=== PATIENT | female | born 1955 | race Caucasian/White ===

== ENCOUNTER → 2019-11-13 11:23 | Outpatient (CLI) | payer MEDICARE, BC, SELFPAY ==
[2017-08-12 09:22] VITALS: BMI 34.8
[2019-11-13 15:28] LABS: Absolute Lymphocyte Count 1.97 X10^3/uL (0.83-4.51); Absolute Neutrophil Count 7.3 X10^3/uL (2.0-7.7); Basophil# 0.05 X10^3/uL; Basophil% 0.5 % (0-1); Eosinophil# 0.11 X10^3/uL; Eosinophils% 1.1 % (0-5); Hematocrit 40.9 % (37-47); Hemoglobin 13.6 g/dL (12.0-15.0); Lymphocyte # 1.97 X10^3/ul (4.0); Lymphocyte % 19.2 % (19-41); Mean Corp Hgb Conc 33.3 g/dL (32-36); Mean Corpuscular Hgb 33.1 pg (27.0-32.0); Mean Corpuscular Volume 99.5 fL (81-99); Mean Platelet Vol. 10.8 fl (6.2-12.0); Monocyte% 7.8 % (0-10); NRBC Flagged by Analyzer 0 % (0-5); Neutrophil # 7.31 X10^3/uL (2.7-7.7); Platelet Count 263 K/mm3 (150-450); RBC Distribution Width CV 12.1 % (11.6-14.6); RBC Distribution Width SD 44.3 fl (35.1-43.9); Red Blood Count 4.11 M/mm3 (4.2-5.4); White Blood Count 10.3 K/mm3 (4.4-11.0)
[2019-11-13 15:51] LABS: AST(SGOT) 19 U/L (15-37); Alanine Aminotransfer ALT/SGPT 27 U/L (13-56); Albumin, Serum 3.7 g/dL (3.2-5.0); Alkaline Phosphatase 69 U/L (45-117); Anion Gap 7 (5-15); BUN 16 mg/dL (7-18); BUN/Creat Ratio 24.7 RATIO (10-20); Chloride 106 mmol/L (98-107); Creatinine, Serum 0.65 mg/dL (0.55-1.02); EST Glomerular Filtration Rate 97 mL/min (>60); Est Glom Filt Rate - Afr Amer 118 mL/min (>60); Globulin 3.6 g/dL (2.2-4.2); Glucose 93 mg/dL (74-106); Protein, Total 7.3 g/dL (6.4-8.2); Sodium Level 139 mmol/L (136-145); T4 Free Direct 0.83 ng/dL (0.76-1.46)
== END ==
PROVIDERS: PCP Family Medicine; Visit Provider Family Medicine
DX: G47.00 Insomnia, unspecified (principal); R73.01 Impaired fasting glucose; Z51.81 Encounter for therapeutic drug level monitoring
CPT/HCPCS: 36415; 80053; 84439; 84443; 85025

== ENCOUNTER → 2020-07-05 16:51 | Outpatient (CLI) | payer MEDICARE, BC, SELFPAY ==
--- NOTE | 2020-07-05 11:45 | CER_PTH ---
PATIENT: BRIAN RUDD LOC: [facility] U#:[id number] AGE/SX: 69/F ROOM: RE07/05/[address]: Dr. Maricarmen Low MD : [id number] BED: DIS: SPEC #: [id number] RECD: 07/08/20 07:16 STATUS: DAVID SHERINE #: [id number] DRE: 07/05/20 11:[address]: Maricarmen Low DEPT: SURGICAL PATHOLOGY RECD BY: Rita Lao ENTERED: 07/08/20 07:17 SP TYPE: CERV OTHR DR: Dr. Valeriy Santana MD Tissues: Uterine cervix, NOS Procedures: Surgery Specimen Level IV HEADER OPERATION: Cervical polypectomy PRE-OP DIAGNOSIS: Cervical polyp TISSUE SUBMITTED: Cervical polyp MICROSCOPIC DIAGNOSIS Cervical polyp, biopsy: Benign cervical polyp, mildly inflamed. AM:savanah 07/09/20 MICROSCOPIC DESCRIPTION Slides are reviewed. GROSS DESCRIPTION Received is one container labeled with the patient's name and not further designated. The specimen consists of an elongated fragment of [place] soft tissue measuring 2.5 x 0.5 x 0.2 cm. The specimen is totally submitted in one cassette. / AM:savanah 07/08/20 TC:1 CPT: 16838
[2020-07-05 11:54] VITALS: BMI 34.8
== END ==
PROVIDERS: PCP Family Medicine; Referring Provider Obstetrics & Gynecology; Visit Provider Obstetrics & Gynecology
DX: N84.1 Polyp of cervix uteri (principal)
CPT/HCPCS: 88305

== ENCOUNTER → 2020-07-05 16:54 | Outpatient (CLI) | payer MEDICARE, BC, SELFPAY ==
[2020-07-05 11:54] VITALS: BMI 34.8
[2020-07-11 13:37] LABS: HPV APTIMA, High Risk Negative (Negative)
== END ==
PROVIDERS: PCP Family Medicine; Referring Provider Obstetrics & Gynecology; Visit Provider Obstetrics & Gynecology
DX: Z12.4 Encounter for screening for malignant neoplasm of cervix (principal); N84.1 Polyp of cervix uteri
CPT/HCPCS: 87624; 88175; 88305; G0145

== ENCOUNTER → 2020-07-16 07:46 | Outpatient (CLI) | payer MEDICARE, BC, SELFPAY ==
[2020-07-05 11:54] VITALS: BMI 34.8
--- NOTE | 2020-07-16 07:47 | CT_ITS ---
STUDY: CT ABDOMEN AND PELVIS WITH CONTRAST REASON FOR EXAM: Female, 64 years old. BLOATING X 2 MONTHS, 12LB WT LOSS X FEW MONTHS, UNINTENTIONAL WT LOSS RADIATION DOSAGE (If Supplied By Facility): CTDIvol = ( 17.84 ) mGy, DLP = ( 2648.35 ) mGycm TECHNIQUE: Transaxial images were obtained from the dome of the diaphragm to the symphysis pubis with oral contrast. Oral and amp; IV Readi-CAT and amp; 100mL Isovue-300 was administered. Sagittal and coronal images were reconstructed. Individualized dose optimization techniques were used for this CT. COMPARISON: Comparison is made with prior study dated 08/12/2017. FINDINGS: There is an 18.3 cm x 20.75 x 22.1 cm large septated mass arising from the pelvis extending in to the lower abdomen. Small amount of ascites. The visualized lung bases are unremarkable. The visualized portions of the heart are within normal limits. There is decreased attenuation of the liver consistent with steatosis. There are multiple gallstones. Normal spleen. Normal pancreas. Normal bilateral adrenal glands. Normal right kidney. Multiple left renal cysts. Normal visualized stomach. Normal small intestine. Normal colon. The appendix is visualized and appears normal. There is diffuse atherosclerotic calcification of the abdominal aorta, without a demonstrated aneurysm. Normal inferior vena cava. Soft tissue mass seen in the mesenteric fat in the right upper quadrant superior and anterior to the liver. This abuts the right hepatic flexure. Omental metastasis. Normal urinary bladder. Normal abdominal wall. There are diffuse degenerative changes of the visualized lumbar spine. Levoscoliosis. 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 Fatty infiltration of the liver. Multiple small gallstones. Multiple left renal cysts. Electronically Signed: Darryl Gaspar, at 12:31 EDT , Service support ,
[2020-07-16 08:01] LABS: CREATININE FINGERSTICK < 0.6 mg/dL (0.55-1.02)
--- NOTE | 2020-07-16 08:17 | CT_ITS ---
STUDY: CT CHEST WITH CONTRAST REASON FOR EXAM: Female, 64 years old. BLOATING X 2 MONTHS, 12LB WT LOSS X FEW MONTHS, UNINTENTIONAL WT LOSS RADIATION DOSAGE (If Supplied By Facility): CTDIvol = ( 17.84 ) mGy, DLP = ( 2648.35 ) mGycm TECHNIQUE: Transaxial imaging was performed following intravenous administration of Oral and amp; IV Readi-CAT and amp; 100mL Isovue-300. Individualized dose optimization techniques were used for this CT. COMPARISON: CT abdomen and pelvis 08/12/2017. FINDINGS: There is a large right anterior diaphragmatic hernia (MORGAGNI hernia), this has markedly increased in size since 08/12/2017. This contains herniated mesentery which demonstrates extensive mesenteric edema and metastatic deposits, a moderate amount of abdominal ascites, a loop of proximal transverse colon without evidence of obstruction on CT abdomen and pelvis performed the same day. There is right middle lobe atelectasis and essentially complete collapse. There is a 2 mm posterior right lower lobe nodule on series 4 image 108. Left lower lobe calcified granuloma. There is no demonstrated pleural abnormality. Normal heart and pericardium. There is extensive coronary artery calcifications and/or stents. Portion of the left chest wall is excluded from view. There is mild left-sided shift of the mediastinum. Normal hilar regions. Normal enhanced pulmonary arteries. Mild aortic atherosclerotic disease. Normal osseous structures. There is hepatic steatosis noted. Moderate amount of abdominal ascites is seen in the superior abdomen. CT/Chest WITH Contrast IMPRESSION: 1. 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 This exerts mild left-sided midline shift. 2. Right middle lobe is completely collapsed/compressed by the large hernia. 3. 2 mm posterior right lower lobe nodule. Electronically Signed: Alysha Coto, at 15:02 EDT Tel , Service support ,
[2020-07-16 15:18] LABS: Absolute Neutrophil Count 12.1 X10^3/uL (2.0-7.7); Basophil# 0.04 X10^3/uL; Basophil% 0.3 % (0-1); Eosinophil# 0.02 X10^3/uL; Eosinophils% 0.1 % (0-5); Hematocrit 33.8 % (37-47); Hemoglobin 10.5 g/dL (12.0-15.0); Lymphocyte % 8.9 % (19-41); Mean Corp Hgb Conc 31.1 g/dL (32-36); Mean Corpuscular Hgb 29.8 pg (27.0-32.0); Mean Platelet Vol. 9.7 fl (6.2-12.0); Monocyte# 1.11 X10^3/uL; Monocyte% 7.6 % (0-10); NRBC Flagged by Analyzer 0 % (0-5); Neutrophil # 12.08 X10^3/uL (2.7-7.7); Neutrophil % 82.7 % (47-70); Platelet Count 533 K/mm3 (150-450); RBC Distribution Width CV 13.5 % (11.6-14.6); RBC Distribution Width SD 47.8 fl (35.1-43.9); Red Blood Count 3.52 M/mm3 (4.2-5.4); White Blood Count 14.6 K/mm3 (4.4-11.0)
[2020-07-16 15:42] LABS: ALB/GLOB Ratio 0.6 RATIO (0.9-2.4); AST(SGOT) 35 U/L (15-37); Alanine Aminotransfer ALT/SGPT 19 U/L (13-56); Albumin, Serum 2.6 g/dL (3.2-5.0); Alkaline Phosphatase 108 U/L (45-117); Anion Gap 8 (5-15); BUN 10 mg/dL (7-18); BUN/Creat Ratio 18.7 RATIO (10-20); Calcium,Total 8.6 mg/dL (8.5-10.1); Chloride 104 mmol/L (98-107); Creatinine, Serum 0.53 mg/dL (0.55-1.02); EST Glomerular Filtration Rate 121 mL/min (>60); Est Glom Filt Rate - Afr Amer 147 mL/min (>60); Globulin 4.5 g/dL (2.2-4.2); Glucose 107 mg/dL (74-106); Potassium 3.2 mmol/L (3.5-5.1); Protein, Total 7.1 g/dL (6.4-8.2); Sodium Level 139 mmol/L (136-145)
[2020-07-18 15:01] LABS: Carbohydrate Ag 19-9 2261 230 U/mL (0-35); Carcinoembryonic Antigen 2.9 ng/mL (0.0-4.7)
== END ==
PROVIDERS: PCP Family Medicine; Referring Provider Obstetrics & Gynecology; Visit Provider Obstetrics & Gynecology
DX: R14.0 Abdominal distension (gaseous) (principal); R63.4 Abnormal weight loss; D49.59 Neoplasm of unspecified behavior of other genitourinary organ
CPT/HCPCS: 36415; 71260; 74177; 80053; 82378; 85025; 86301; 86304; Q9967

== ENCOUNTER → 2020-08-20 14:47 | Outpatient (CLI) | payer MEDICARE, BC, SELFPAY ==
[2020-08-20 13:13] VITALS: BMI 33.5
--- NOTE | 2020-08-20 15:03 | VDLE_ITS ---
Reason For Study: Swelling RIGHT LEFT GSV is normal. GSV is normal. CFV is compressible, spontaneous, phasic, CFV is compressible, spontaneous, phasic, competent and demonstrates normal competent, and demonstrates normal augmentation. augmentation. FV is compressible, spontaneous, phasic, FV is compressible, spontaneous, phasic, competent and demonstrates normal competent and demonstrates normal augmentation. augmentation. POP V is compressible, spontaneous, phasic, POP V is compressible, spontaneous, phasic, competent and demonstrates normal competent and demonstrates normal augmentation. augmentation. T/P Trunk is compressible. T/P Trunk is compressible. PTV is compressible. PTV is compressible. RT PerV is compressible. LT PerV is compressible. Procedure This is a venous duplex using B-mode, color flow and spectral Doppler. Exam performed in department. Calf veins only visualized at ankle due to edema. A preliminary report was called and/or faxed to RN @ [facility] office. Interpretation Summary No evidence for acute deep venous thrombosis bilateral lower extremities with patent and compressible bilateral great saphenous veins. Technically limited exam as noted secondary to calf swelling Ordering Physician: Cecy James Referring Physician: Valeriy Santana Performed By: Hannah Smith RVT
== END ==
LOC: CT 14:50 → CVS 14:50
PROVIDERS: PCP Family Medicine; Referring Provider Internal Medicine Hematology & Oncology; Visit Provider Internal Medicine Hematology & Oncology
DX: C56.9 Malignant neoplasm of unspecified ovary (principal); C78.6 Secondary malignant neoplasm of retroperitoneum and peritoneum; C80.1 Malignant (primary) neoplasm, unspecified; R91.1 Solitary pulmonary nodule; R60.0 Localized edema; Z45.2 Encounter for adjustment and management of vascular access device
CPT/HCPCS: 36415; 80053; 82607; 82728; 83540; 83550; 85025; 86304; 93970

== ENCOUNTER → 2020-09-02 14:24 | Outpatient (CLI) | payer MEDICARE, BC, SELFPAY ==
[2020-08-20 13:13] VITALS: BMI 33.5
[2020-08-26 16:49] VITALS: BMI 34.6
--- NOTE | 2020-09-02 14:26 | CT_ITS ---
STUDY: CT CHEST WITH CONTRAST REASON FOR EXAM: Female, 64 years old. FOLLOW UP ON OVARIAN CA. HAD HYSTERECTOMY X 5 WEEKS AGO. RADIATION DOSAGE (If Supplied By Facility): CTDIvol = ( 12.53 ) mGy, DLP = ( 1397.72 ) mGycm TECHNIQUE: Transaxial imaging was performed following intravenous administration of 100ML OF ISOVUE 300. Multiplanar coronal and sagittal images were reformatted. Individualized dose optimization techniques were used for this CT. COMPARISON: Comparison is made with prior study dated 07/16/2020. FINDINGS: Minimal degree of increased markings at the right lung base suggestive of right basilar atelectasis. The previously seen soft tissue mass overlying the right lobe of the liver and diaphragmatic elevation has improved. There is no demonstrated pleural abnormality. There are calcifications of the coronary arteries. Normal mediastinum. Normal hilar regions. Normal enhanced pulmonary arteries. Normal aorta arch and descending thoracic aorta. There are degenerative changes of the thoracic spine. Demineralization of the thoracic vertebrae with approximately 50% loss of height of a lower dorsal vertebrae. Diffuse fatty infiltration of the liver. Ascites. CT/Chest WITH Contrast IMPRESSION: Findings suggest some mild atelectasis in the right middle lobe. The previously seen elevation of the right hemidiaphragm has improved. Electronically Signed: Darryl Gaspar, at 15:55 EST , Service support ,
--- NOTE | 2020-09-02 14:40 | CT_ITS ---
STUDY: CT ABDOMEN AND PELVIS WITH CONTRAST REASON FOR EXAM: Female, 64 years old. FOLLOW UP ON OVARIAN CA. HAD HYSTERECTOMY X 5 WEEKS AGO. RADIATION DOSAGE (If Supplied By Facility): CTDIvol = ( 12.5 ) mGy, DLP = ( 1397.72 ) mGycm TECHNIQUE: Transaxial images were obtained from the dome of the diaphragm to the symphysis pubis without oral contrast. 100 ML OS ISOVUE 300 was administered. Sagittal and coronal images were reconstructed. Individualized dose optimization techniques were used for this CT. COMPARISON: Comparison is made with prior study dated 07/16/2020. FINDINGS: Minimal atelectasis at the right lung base. Coronary artery calcification. Diffuse ascites although this has improved as compared to prior examination. The previously seen mesenteric infiltration surrounding the superior aspect of the liver has improved. There is decreased attenuation of the liver consistent with steatosis. Mild hepatomegaly. There are multiple gallstones. Normal spleen. Normal pancreas. Normal bilateral adrenal glands. Normal right kidney. Stable multiple left hepatic cysts. Normal visualized stomach. Normal small intestine. Normal colon. The appendix is visualized and appears normal. Normal abdominal aorta. Normal inferior vena cava. Normal retroperitoneum. Normal urinary bladder. There is absence of the uterus consistent with a prior hysterectomy. The previously seen large abdominal pelvic complex cystic mass has been surgically resected. Normal abdominal wall. There are diffuse degenerative changes of the visualized lumbar spine. CT/Abdomen/Pelvis W IV Cont ONLY IMPRESSION: Since prior study, the patient has undergone surgical resection of the large abdominal pelvic mass. The previously seen ascites has improved although residual ascites persists. Multiple small gallstones. Mild hepatomegaly and diffuse fatty infiltration of the liver. Electronically Signed: Darryl Gaspar, at 15:47 EST , Service support ,
== END ==
PROVIDERS: PCP Family Medicine; Referring Provider Internal Medicine Hematology & Oncology; Visit Provider Internal Medicine Hematology & Oncology
DX: C56.9 Malignant neoplasm of unspecified ovary (principal); C78.6 Secondary malignant neoplasm of retroperitoneum and peritoneum; C80.1 Malignant (primary) neoplasm, unspecified; R91.1 Solitary pulmonary nodule; C56.2 Malignant neoplasm of left ovary
CPT/HCPCS: 71260; 74177; Q9967

== ENCOUNTER 2020-09-04 08:56 | Day surgery (SDC) | payer MEDICARE, BC, SELFPAY ==
[2020-08-22 13:58] VITALS: BMI 32.9
[2020-08-26 16:49] VITALS: BMI 34.6
[2020-09-03 12:47] LABS: Potassium 3.4 mmol/L (3.5-5.1)
[2020-09-03 16:56] LABS: Probe Check PASS; Specimen Processing Control PASS
[2020-09-04 09:49] VITALS: BP 141/73; PULSE 96; RESP 18; TEMP 36.6; O2SAT 98; BMI 34.2
--- NOTE | 2020-09-04 10:00 | HP_ITS ---
Intake Visit Reasons: Port Placement Consult Chief Complaint: Ovarian cancer [employer] Adviser Required: No Is patient in pain?: No Allergies fentanyl Adverse Reaction (Severe, Verified 08/22/20 13:58) Nausea pregabalin [From Lyrica] Adverse Reaction (Severe, Verified 08/22/20 13:58) Other Medications Oxycodone CR [Oxycontin] 20 mg PO Q12H 08/12/17 [History Confirmed 08/22/20] Oxycodone HCl/Acetaminophen [Percocet 5/325] 2 tab PO Q12H PRN PRN 08/12/17 [History Confirmed 08/22/20] Triazolam 0.25 mg PO QHS 08/12/17 [History Confirmed 08/22/20] ondansetron HCl 4 mg tablet 4 mg PO Q8H PRN #60 tab 07/18/20 [Rx Confirmed 08/22/20] Enoxaparin Sodium 100 mg SQ DAILY 08/20/20 [History Confirmed 08/22/20] PFSH Medical History Iron deficiency anemia (Chronic) Chronic back pain (Chronic) Nodule of lower lobe of right lung (Acute) Omental metastasis (Acute) Peritoneal carcinomatosis (Acute) Ovarian cancer (Acute) Lichen sclerosus (Chronic) Weight loss (Acute) Uterine prolapse (Acute) Surgical History Status post exploratory laparotomy (Acute) Status post eye surgery (Acute) Family History Mother Blood disease Father Myocardial infarction Social History (Updated 08/23/20 @ 11:[address] Jesus Manuel May MD) household members: spouse, other number of children: 3 current occupational status: retired history of recent travel: No Smoking Status: Never smoker alcohol intake: never substance use type: does not use what type of physical activity do you participate in: none seatbelt use: always do you feel safe at home: Yes additional social history: - James HPI HPI Chief Complaint: Ovarian cancer Details: Patient was informed that this visit will be billed to patient. This visit was conducted during pandemic. BRIAN RUDD, is a 64 F who Had a phone visit for port placement as well as EGD and colonoscopy. 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 The patient was recommended to have EGD and colonoscopy to ensure that the primary was a variant and not GI in nature. Patient also needs port placement for chemotherapy. ROS Const Constitutional: No anorexia, chills or abnormal sleep pattern Cardio Cardiology: No chest pain at rest or chest pain with exertion Gastro GI: No abdominal pain, change in bowel habits, Vomiting blood/hematemesis or blood in stool Genitourinary-Female: No difficulty urinating Neuro Neurology: No abnormal speech Psych Psychiatric: No abnormal sleep pattern Exam Const General: cooperative, comfortable Resp Effort & Inspection: normal respiratory effort GI Inspection: normal to inspection, non-distended Auscultation: normal bowel sounds Palpation: nontender Details: Details:: Exam was limited due to phone visit with no video. Quality Reporting Medication Reconciliation (CMS 68) enoxaparin 100 mg SQ DAILY ondansetron HCl (Zofran) 4 mg PO Q8H PRN oxycodone ER 20 mg PO Q12H oxycodone-acetaminophen 5-325 mg 2 tabs PO Q12H PRN PRN triazolam 0.25 mg PO QHS Tobacco Screening (CMS 138) Smoking Status: Never smoker Assessment & Plan Problems 1. Peritoneal carcinomatosis C78.6; C80.1 2. Ovarian cancer C56.9 Plan The patient has mucinous carcinoma of the abdomen and she was recommended by tumor board to have an EGD and colonoscopy to ensure there is not a primary in the GI tract. I will perform an EGD and colonoscopy. I explained endoscopy in detail to the patient. I explained the risks including but not limited to stroke or heart attack with anesthesia, perforation of the GI tract, bleeding, infection. I explained that any of these could necessitate further emergency surgery. The patient understands and all questions were answered sufficiently. The patient wishes to proceed with procedure. Patient also requires port placement for chemotherapy. I discussed port placement including the risks of bleeding, infection, pneumothorax, line infection or DVT. The patient understands the risks and will proceed with port placement. We discussed the current risks associated with COVID-19. While it is understood that there is a community spread of COVID-19, the risk of sandip COVID-19 while at [facility] ([facility]) is very low; however, the risk cannot be completely mitigated because of the community spread of the disease. We discussed in detail the risk of exposure to and/or potential harm posed by the COVID-19 virus with having a surgery/procedure at this time versus the risk of delaying the surgery/procedure. It is not possible to know either the risk of delaying the surgery or procedure or chance of getting an infection with perfect accuracy, but a joint decision was made to proceed at this time with the scheduled surgery/procedure as indicated on the consent form. Patient was notified that we will need to comply with any screening or testing [facility] wishes to perform or that surgery may be delayed for any positive results. Phone visit [phone] Jesus Manuel May MD Pager: [facility] [address] [place] [address], [address] [place] [address] Office: Orders Orders: Colonoscopy 08/22/20 C78.6, C80.1 EGD 08/22/20 C78.6, C80.1 Coding Level of Care Code Level 3 Telephone Diagnoses Peritoneal carcinomatosis C78.6; C80.1 Ovarian cancer C56.9 I have re-examined the patient. There are no clinical changes since date of exam.
[2020-09-04] MEDS: Lactated Ringers 1,000 ML 75 ML IV (10:19)
[2020-09-04] MEDS: Cefazolin 2 GM in 0.9% Normal Saline 100 ML IV (10:56)
[2020-09-04] MEDS: Bupiv/Epi 0.5% Mpf 30 ML Vial (11:00)
[2020-09-04 11:21] VITALS: BP 132/68; BP 141/73; PULSE 100; RESP 18; TEMP 36.3; O2SAT 100
[2020-09-04 11:25] VITALS: BP 126/65; BP 141/73; PULSE 99; RESP 18; O2SAT 99
--- NOTE | 2020-09-04 11:25 | RAD_ITS ---
STUDY: X-RAY CHEST REASON FOR EXAM: Female, 64 years old. Post op port placement TECHNIQUE: Single AP portable view of the chest. COMPARISON: None. FINDINGS: A right-sided portacatheter has been placed with the tip at the junction of the superior vena cava and right atrium. Elevation of the right hemidiaphragm. No acute abnormality is seen. There is no demonstrated pleural abnormality. Normal size heart. Normal mediastinum and brad. Normal visualized pulmonary arteries. Normal visualized aortic arch and descending thoracic aorta. There are diffuse degenerative changes of the visualized thoracic spine. Normal visualized ribs, clavicles, and shoulders. There is no demonstrated abnormality of the visualized soft tissue structures of the upper abdomen. RAD/CXR for Line Placement IMPRESSION: Status post right portacatheter placement with the tip at the junction of the superior vena cava and right atrium. Electronically Signed: Darryl Gaspar, at 11:49 EST , Service support ,
[2020-09-04 11:29] VITALS: BP 122/67; BP 141/73; PULSE 95; RESP 18; O2SAT 98
--- NOTE | 2020-09-04 11:34 | PCM.OPRPT ---
Problem List (1) Encounter for adjustment and management of vascular access device Status: Acute (2) Ovarian cancer Status: Acute Qualifiers: Report of Operation Date of Procedure: 09/04/20 Pre-Operative Diagnosis: Ovarian cancer and need for vascular access for chemotherapy Post-Operative Diagnosis: Same Surgery/Procedure Performed:: Ultrasound and fluoroscopy guided right chest port placement utilizing right IJ Description of Procedure: After obtaining informed consent patient was brought back to the operating room MAC anesthesia was induced and the Right chest and neck were prepped in normal sterile fashion. Ultrasound was used to evaluate both IJs and the right IJ was selected. Next, using a needle, the Right IJ was accessed and a guidewire was passed on into the superior vena cava under fluoroscopy guidance. A small incision was made over the puncture site and the dilator introducer was placed over the guidewire. Next this was capped and the pocket was made for the port. 1% lidocaine with epinephrine was injected in the proposed port site. An incision was made with scalpel. Electrocautery was used to make a pocket under the skin and subcutaneous tissue. Hemostasis was obtained. Next, the catheter was tunneled up to the neck incision site and placed through the introducer. The peel-away introducer was removed and the position of the catheter was confirmed on fluoroscopy. Next, the catheter was trimmed and attached to the port with the locking device. Interrupted 2-0 Vicryl sutures were used to anchor the port to the chest wall and then the port was placed inside the pocket. The pocket was then flushed with saline and the port irrigated with saline. There was good blood return and the port flushed easily. Next, heparin was injected into the port. The skin was closed with subcutaneous interrupted 3-0 Vicryl sutures. A single 3-0 Vicryl sutures placed under the skin at the neck incision site. Steri-Strips were placed as well as op sites. Patient tolerated procedure well, was taken to PACU in stable condition. Chest x-ray will be obtained. Grafts/Implants Used: 8 [place] [employer] - Admit VTE Documentation VTE Mechan Device Prophylaxis: SCD's
[2020-09-04 11:35] VITALS: BP 115/65; BP 126/55; BP 141/73; PULSE 96; PULSE 98; RESP 18; TEMP 36.3; O2SAT 100; O2SAT 97
--- NOTE | 2020-09-04 11:36 | PCM.DC.POR ---
Discharge Diet: No Restrictions - Pain medication may cause nausea. You should typically eat light foods as you take your pain medication. Discharge Activity: Return to Normal Activity, May Shower - with your bandage in place in 1-2 days after surgery. DO NOT SHOWER WHEN YOUR PORT IS ACCESSED. Call your doctor if your incision/area has: Continuous Slow Oozing, Sudden Increased Bleeding, Increased Pain/ Swelling, Increased Redness Call your doctor if you observe: Fever of 101 or Higher Remove Dressing in (days):: 3 - When you remove the bandage, leave the steri-strips intact until they fall off. Allergies/Adverse Reactions: Allergies fentanyl Adverse Reaction (Severe, Verified 09/02/20 09:52) Nausea pregabalin [From Lyrica] Adverse Reaction (Severe, Verified 09/02/20 09:52) Other MENTAL STATUS CHANGE Medications to take at Discharge Oxycodone CR [Oxycontin] 20 mg PO Q12H 08/12/17 Oxycodone HCl/Acetaminophen [Percocet 5/325] 2 tab PO Q12H PRN PRN 08/12/17 Triazolam 0.25 mg PO QHS 08/12/17 ondansetron HCl 4 mg tablet 4 mg PO Q8H PRN #60 tab 07/18/20 Enoxaparin Sodium 100 mg SQ DAILY 08/20/20 Lidocaine/Prilocaine [Lidocaine-Prilocaine Cream] 1 applicatio TP DAILY PRN PRN 30 Days #1 tube 08/26/20 Prochlorperazine Maleate 10 mg PO Q6H PRN PRN 10 Days #30 tab 08/26/20 potassium chloride 20 mEq tablet,extended release 20 meq PO DAILY #6 tab 09/02/20 Orders to be completed after discharge: O.R. Fluoro for CVP/PICC/PORT [RAD] Time Frame: 09/04/20, Facility: [facility], Location: [facility] Test Results: Test results from this visit will be discussed in further detail at your follow-up appointment, if applicable. Please Follow Up With: Jesus Manuel May MD When: Follow up as needed. [phone]
[2020-09-04 12:33] VITALS: BP 130/61; BP 141/73; PULSE 100; RESP 16; TEMP 36.3; O2SAT 97
== END 2020-09-04 12:37 | disposition home or self-care (01) ==
LOC: SDC 08:57 → AC 08:57
PROVIDERS: PCP Family Medicine; Referring Provider Surgery; Visit Provider Surgery
PROC: (CPT 36561; principal; 2020-09-04 10:45)
DX: Z45.2 Encounter for adjustment and management of vascular access device (principal); C56.9 Malignant neoplasm of unspecified ovary; G89.29 Other chronic pain; C78.6 Secondary malignant neoplasm of retroperitoneum and peritoneum; Z79.899 Other long term (current) drug therapy
CPT/HCPCS: 00532; 36561; 36415; 71045; 77001; 84132; 87635; C9803; J7120; C1788; U0002

== ENCOUNTER 2020-10-11 06:39 | Day surgery (SDC) | payer MEDICARE, BC, SELFPAY ==
[2020-08-22 13:58] VITALS: BMI 32.9
--- NOTE | 2020-09-20 08:00 | HP_ITS ---
Intake Visit Reasons: Port Placement Consult Chief Complaint: Ovarian cancer Motion Picture Camera Operator Required: No Is patient in pain?: No Allergies fentanyl Adverse Reaction (Severe, Verified 08/22/20 13:58) Nausea pregabalin [From Lyrica] Adverse Reaction (Severe, Verified 08/22/20 13:58) Other Medications Oxycodone CR [Oxycontin] 20 mg PO Q12H 08/12/17 [History Confirmed 08/22/20] Oxycodone HCl/Acetaminophen [Percocet 5/325] 2 tab PO Q12H PRN PRN 08/12/17 [History Confirmed 08/22/20] Triazolam 0.25 mg PO QHS 08/12/17 [History Confirmed 08/22/20] ondansetron HCl 4 mg tablet 4 mg PO Q8H PRN #60 tab 07/18/20 [Rx Confirmed 08/22/20] Enoxaparin Sodium 100 mg SQ DAILY 08/20/20 [History Confirmed 08/22/20] PFSH Medical History Iron deficiency anemia (Chronic) Chronic back pain (Chronic) Nodule of lower lobe of right lung (Acute) Omental metastasis (Acute) Peritoneal carcinomatosis (Acute) Ovarian cancer (Acute) Lichen sclerosus (Chronic) Weight loss (Acute) Uterine prolapse (Acute) Surgical History Status post exploratory laparotomy (Acute) Status post eye surgery (Acute) Family History Mother Blood disease Father Myocardial infarction Social History (Updated 08/23/20 @ 11:[address] Jesus Manuel May MD) household members: spouse, other number of children: 3 current occupational status: retired history of recent travel: No Smoking Status: Never smoker alcohol intake: never substance use type: does not use what type of physical activity do you participate in: none seatbelt use: always do you feel safe at home: Yes additional social history: - James HPI HPI Chief Complaint: Ovarian cancer Details: Patient was informed that this visit will be billed to patient. This visit was conducted during pandemic. BRIAN RUDD, is a 64 F who Had a phone visit for port placement as well as EGD and colonoscopy. 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 The patient was recommended to have EGD and colonoscopy to ensure that the primary was a variant and not GI in nature. Patient also needs port placement for chemotherapy. ROS Const Constitutional: No anorexia, chills or abnormal sleep pattern Cardio Cardiology: No chest pain at rest or chest pain with exertion Gastro GI: No abdominal pain, change in bowel habits, Vomiting blood/hematemesis or blood in stool Genitourinary-Female: No difficulty urinating Neuro Neurology: No abnormal speech Psych Psychiatric: No abnormal sleep pattern Exam Const General: cooperative, comfortable Resp Effort & Inspection: normal respiratory effort GI Inspection: normal to inspection, non-distended Auscultation: normal bowel sounds Palpation: nontender Details: Details:: Exam was limited due to phone visit with no video. Quality Reporting Medication Reconciliation (CMS 68) enoxaparin 100 mg SQ DAILY ondansetron HCl (Zofran) 4 mg PO Q8H PRN oxycodone ER 20 mg PO Q12H oxycodone-acetaminophen 5-325 mg 2 tabs PO Q12H PRN PRN triazolam 0.25 mg PO QHS Tobacco Screening (CMS 138) Smoking Status: Never smoker Assessment & Plan Problems 1. Peritoneal carcinomatosis C78.6; C80.1 2. Ovarian cancer C56.9 Plan The patient has mucinous carcinoma of the abdomen and she was recommended by tumor board to have an EGD and colonoscopy to ensure there is not a primary in the GI tract. I will perform an EGD and colonoscopy. I explained endoscopy in detail to the patient. I explained the risks including but not limited to stroke or heart attack with anesthesia, perforation of the GI tract, bleeding, infection. I explained that any of these could necessitate further emergency surgery. The patient understands and all questions were answered sufficiently. The patient wishes to proceed with procedure. Patient also requires port placement for chemotherapy. I discussed port placement including the risks of bleeding, infection, pneumothorax, line infection or DVT. The patient understands the risks and will proceed with port placement. We discussed the current risks associated with COVID-19. While it is understood that there is a community spread of COVID-19, the risk of sandip COVID-19 while at [facility] ([facility]) is very low; however, the risk cannot be completely mitigated because of the community spread of the disease. We discussed in detail the risk of exposure to and/or potential harm posed by the COVID-19 virus with having a surgery/procedure at this time versus the risk of delaying the surgery/procedure. It is not possible to know either the risk of delaying the surgery or procedure or chance of getting an infection with perfect accuracy, but a joint decision was made to proceed at this time with the scheduled surgery/procedure as indicated on the consent form. Patient was notified that we will need to comply with any screening or testing [facility] wishes to perform or that surgery may be delayed for any positive results. Phone visit [phone] Jesus Manuel May MD Pager: [facility] [address] [place] [address], [address] [place] [address] Office: Orders Orders: Colonoscopy 08/22/20 C78.6, C80.1 EGD 08/22/20 C78.6, C80.1 Coding Level of Care Code Level 3 Telephone Diagnoses Peritoneal carcinomatosis C78.6; C80.1 Ovarian cancer C56.9 I have re-examined the patient. There are no clinical changes since date of exam. I have re-examined the patient. There are no clinical changes since date of exam.
[2020-10-10 09:33] VITALS: BMI 28.8
[2020-10-11] VITALS (7 sets, daily range): BP systolic 100–138; BP diastolic 48–72; PULSE 72–98; RESP 16; TEMP 36.3–36.6; O2SAT 99–100; BMI 28.6
[2020-10-11] MEDS: Lactated Ringers 1,000 ML 100 ML IV (07:47)
--- NOTE | 2020-10-11 08:00 | IMM_PTH ---
PATIENT: BRIAN RUDD LOC: EN U#:[id number] AGE/SX: 64/F ROOM: RE10/11/[address]: Dr. Jesus Manuel May MD : 1955 BED: DIS: 10/11/2020 SPEC #: [id number] RECD: 10/11/20 12:43 STATUS: DAVID REQ #: [id number] DRE: 10/11/20 08:[address]: Jesus Manuel May DEPT: IMMUNOHISTOCHEMISTRY RECD BY: Marina Fraser ENTERED: 10/11/20 12:43 SP TYPE: IMMUNO OTHR DR: Dr. Valeriy Santana MD Tissues: Stomach, NOS Procedures: H Pylori (initial) PHYSICIAN & INSTITUTION [place] [address] SPECIMEN INFORMATION: Tissue Source: Antral biopsy Clinical Info: Peritoneal carcinomatosis, ovarian cancer Specimen Number: [id number] CPT code: 10238 METHODOLOGY: Deparaffinized sections of prefer/formalin-fixed tissue or PAP/DQ stained slides are incubated with monoclonal/polyclonal antibodies/oligonucleotide probes. Localization is made via biotin free immunoperoxidase method. Appropriate controls are performed and reacted as expected. Results on target cell population are indicated in the following table: RESULTS: ANTIBODY / CLONE RESULT H Pylori (polyclonal) negative These tests were developed and their performance characteristics determined by [facility]. They may not have been cleared or approved by the U.S. Food and Drug Administration. The FDA has determined that such clearance or approval is not necessary. INTERPRETATION: Antral biopsy: Negative for Helicobacter pylori organisms. BJ:savanah 10/14/2020
--- NOTE | 2020-10-11 08:00 | EGD_PTH ---
PATIENT: BRIAN RUDD LOC: EN U#:[id number] AGE/SX: 64/F ROOM: RE10/11/[address]: Dr. Jesus Manuel May MD : 1955 BED: DIS: 10/11/2020 SPEC #: [id number] RECD: 10/11/20 11:35 STATUS: DAVID REEsperazna #: [id number] DRE: 10/11/20 08:[address]: Jesus Manuel May DEPT: SURGICAL PATHOLOGY RECD BY: Renetta Morillo ENTERED: 10/11/20 12:23 SP TYPE: EGD BIOPSY OT DR: Dr. Valeriy Santana MD Tissues: Gastric mucous membrane Procedures: Surgery Specimen Level IV HEADER OPERATION: Colonoscopy, EGD ([facility] [place]) PRE-OP DIAGNOSIS: Peritoneal carcinomatosis; ovarian cancer TISSUE SUBMITTED: Antral biopsy for H. pylori and pathology MICROSCOPIC DIAGNOSIS Antral biopsy: Mild gastritis. See microscopic description and comment. SJ:savanah 10/14/2020 COMMENT The results of immunohistochemistry for Helicobacter pylori will be reported separately ([id number]). MICROSCOPIC DESCRIPTION Slides are reviewed. The specimen shows fragments of gastric mucosa with chronic inflammatory cell infiltrates in the lamina propria consisting of lymphocytes and plasma cells, consistent with mild chronic gastritis. GROSS DESCRIPTION Received in fixative is one container labeled with the patient's name and designated antral biopsy. The specimen consists of one irregular fragment of light meadows soft tissue that measures 0.3 x 0.2 x 0.1 cm. The specimen is totally submitted in one cassette. / AM:savanah 10/11/2020 TC:3 CPT: 78726
--- NOTE | 2020-10-11 08:25 | OP.CCLET_ITS ---
10/11/2020 Cecy James [address] [place] [address] Re : Upper GI endoscopy procedure for Chely Hurst Dear Dr. James This procedure was performed on Sunday, October 11, 2020. My impressions and recommendations are as follows: Impressions : - Gastritis. Biopsied. - Normal esophagus. - Normal examined duodenum. Recommendations : - Await pathology results. - Discharge patient to home. - Resume previous diet. - Continue present medications. My findings are described in the full procedure note, which is enclosed. If I can be of further assistance, please feel free to contact me at Doctor phone number(s): , Work: . Sincerely, Jesus Manuel May MD 10/11/2020 8:24:32 AM This report has been signed electronically.
--- NOTE | 2020-10-11 08:25 | OP.EGD_ITS ---
Patient Name: Chely Hurst Procedure Date: 10/11/2020 7:53 AM Date of : 1955 Age: 64 Procedure: Upper GI endoscopy Indications: Exclusion of metastatic cancer to abdominal lymph nodes Providers: Jesus Manuel May MD Referring MD: Valeriy Santana Medicines: Monitored Anesthesia Care Patient Profile: This is a 64 year old female. Refer to note in patient chart for documentation of history and physical. Complications: No immediate complications. Procedure: Pre-Anesthesia Assessment: - Prior to the procedure, a History and Physical was performed, and patient medications and allergies were reviewed. The patient's tolerance of previous anesthesia was also reviewed. The risks and benefits of the procedure and the sedation options and risks were discussed with the patient. All questions were answered, and informed consent was obtained. Prior Anticoagulants: The patient has taken no previous anticoagulant or antiplatelet agents. After reviewing the risks and benefits, the patient was deemed in satisfactory condition to undergo the procedure. After obtaining informed consent, the endoscope was passed under direct vision. Throughout the procedure, the patient's blood pressure, pulse, and oxygen saturations were monitored continuously. The gastroscope was introduced through the mouth, and advanced to the fourth part of duodenum. The upper GI endoscopy was accomplished without difficulty. The patient tolerated the procedure well. Scope In: 8:01:03 AM Scope Out: 8:04:03 AM Total Procedure Duration Time 0 hours 3 minutes 0 seconds Findings: Localized mild inflammation characterized by adherent blood was found in the stomach. Biopsies were taken with a cold forceps for Helicobacter pylori testing. The esophagus was normal. The examined duodenum was normal. Impression: - Gastritis. Biopsied. - Normal esophagus. - Normal examined duodenum. Recommendation: - Await pathology results. - Discharge patient to home. - Resume previous diet. - Continue present medications. Procedure Code(s): --- Professional --- 68791, Esophagogastroduodenoscopy, flexible, transoral; with biopsy, single or multiple Diagnosis Code(s): --- Professional --- K29.70, Gastritis, unspecified, without bleeding CPT copyright 2017 [employer]. All rights reserved. The codes documented in this report are preliminary and upon narrow fabric loom fixer review may be revised to meet current compliance requirements. Jesus Manuel May MD 10/11/2020 8:24:32 AM This report has been signed electronically. Number of Addenda: 0 Note Initiated On: 10/11/2020 7:53 AM
--- NOTE | 2020-10-11 08:27 | OP.CCLET_ITS ---
10/11/2020 Cecy James [address] [place] [address] Re : Colonoscopy procedure for Chely Allanyo Dear Dr. James This procedure was performed on Sunday, October 11, 2020. My impressions and recommendations are as follows: Impressions : - The entire examined colon is normal on direct and retroflexion views. - No specimens collected. Recommendations : - Discharge patient to home. - Resume previous diet. - Continue present medications. - Repeat colonoscopy is not recommended due to current age (66 years or older) for screening purposes. My findings are described in the full procedure note, which is enclosed. If I can be of further assistance, please feel free to contact me at Doctor phone number(s): , Work: . Sincerely, Jesus Manuel May MD 10/11/2020 8:26:54 AM This report has been signed electronically.
--- NOTE | 2020-10-11 08:27 | OP.COLON_ITS ---
Patient Name: Chely Hurst Procedure Date: 10/11/2020 8:04 AM Date of : 1955 Age: 64 Procedure: Colonoscopy Indications: Follow-up of metastatic cancer to abdominal lymph nodes Providers: Jesus Manuel May MD Referring MD: Valeriy Santana Medicines: Monitored Anesthesia Care Patient Profile: This is a 64 year old female. Refer to note in patient chart for documentation of history and physical. Last Colonoscopy: more than 3 years ago. Complications: No immediate complications. Procedure: Pre-Anesthesia Assessment: - Prior to the procedure, a History and Physical was performed, and patient medications and allergies were reviewed. The patient's tolerance of previous anesthesia was also reviewed. The risks and benefits of the procedure and the sedation options and risks were discussed with the patient. All questions were answered, and informed consent was obtained. Prior Anticoagulants: The patient has taken no previous anticoagulant or antiplatelet agents. After reviewing the risks and benefits, the patient was deemed in satisfactory condition to undergo the procedure. - Prior to the procedure, a History and Physical was performed, and patient medications and allergies were reviewed. The patient's tolerance of previous anesthesia was also reviewed. The risks and benefits of the procedure and the sedation options and risks were discussed with the patient. All questions were answered, and informed consent was obtained. Prior Anticoagulants: The patient has taken no previous anticoagulant or antiplatelet agents. After reviewing the risks and benefits, the patient was deemed in satisfactory condition to undergo the procedure. After I obtained informed consent, the scope was passed under direct vision. Throughout the procedure, the patient's blood pressure, pulse, and oxygen saturations were monitored continuously. The colonoscope was introduced through the anus and advanced to the cecum, identified by appendiceal orifice and ileocecal valve. The colonoscopy was performed without difficulty. The patient tolerated the procedure well. The quality of the bowel preparation was adequate. Scope In: 8:05:53 AM Scope Withdrawal Time 0 hours 2 minutes 39 seconds Scope Out: 8:18:45 AM Total Procedure Duration Time 0 hours 12 minutes 52 seconds Findings: The entire examined colon appeared normal on direct and retroflexion views. Impression: - The entire examined colon is normal on direct and retroflexion views. - No specimens collected. Recommendation: - Discharge patient to home. - Resume previous diet. - Continue present medications. - Repeat colonoscopy is not recommended due to current age (66 years or older) for screening purposes. Procedure Code(s): --- Professional --- 34994, Colonoscopy, flexible; diagnostic, including collection of specimen(s) by brushing or washing, when performed (separate procedure) Diagnosis Code(s): --- Professional --- C77.2, Secondary and unspecified malignant neoplasm of intra-abdominal lymph nodes CPT copyright 2017 [employer]. All rights reserved. The codes documented in this report are preliminary and upon golf course equipment operator review may be revised to meet current compliance requirements. Jesus Manuel May MD 10/11/2020 8:26:54 AM This report has been signed electronically. Number of Addenda: 0 Note Initiated On: 10/11/2020 8:04 AM
== END 2020-10-11 09:22 | disposition home or self-care (01) ==
LOC: EN 06:40 → AC 06:40
PROVIDERS: PCP Family Medicine; Referring Provider Family Medicine; Visit Provider Surgery
PROC: 0DJD8ZZ Inspection of Lower Intestinal Tract, Via Natural or Artificial Opening Endoscopic (ICD-10-PCS; CPT 45378; principal; 2020-10-11 07:55)
DX: C56.9 Malignant neoplasm of unspecified ovary (principal); C77.2 Secondary and unspecified malignant neoplasm of intra-abdominal lymph nodes; Z20.828 Contact with and (suspected) exposure to other viral communicable diseases; G89.29 Other chronic pain; Z79.899 Other long term (current) drug therapy; C78.6 Secondary malignant neoplasm of retroperitoneum and peritoneum; K29.70 Gastritis, unspecified, without bleeding
CPT/HCPCS: 43239; 45378; 87426; 88305; 88342; C9803; J7120; A4216; J2405

== ENCOUNTER → 2020-10-30 08:00 | Outpatient (CLI) | payer MEDICARE, BC, SELFPAY ==
[2020-10-16 10:19] VITALS: BMI 27.5
[2020-10-28 10:33] VITALS: BMI 25.9
--- NOTE | 2020-10-30 08:05 | CT_ITS ---
STUDY: CT ABDOMEN AND PELVIS WITH CONTRAST REASON FOR EXAM: Female, 65 years old. OVARIAN CANCER FOLLOW UP RADIATION DOSAGE (If Supplied By Facility): CTDIvol = ( 10.86 ) mGy, DLP = ( 1372.68 ) mGycm TECHNIQUE: Transaxial images were obtained from the dome of the diaphragm to the symphysis pubis without oral contrast. IV 100mL Isovue-300 was administered. Sagittal and coronal images were reconstructed. Individualized dose optimization techniques were used for this CT. COMPARISON: Comparison is made with prior study dated 09/02/2020. FINDINGS: Minimal residual atelectasis at the right lung base. Coronary artery calcification. Diffuse ascites. There is decreased attenuation of the liver consistent with steatosis. Stable 2.3 mm cyst in the medial aspect of the right lobe of the liver. Mild hepatomegaly. There are multiple gallstones. Normal spleen. Normal pancreas. Normal bilateral adrenal glands. Normal right kidney. Stable left renal cysts. The largest measures 7.3 cm x 3.9 cm. Normal visualized stomach. Normal small intestine. Moderate amount of fecal material is seen in the colon. The appendix is visualized and appears normal. There is diffuse atherosclerotic calcification of the abdominal aorta and its major visceral branches, without a demonstrated aneurysm. Normal inferior vena cava. Normal retroperitoneum. Normal urinary bladder. There is absence of the uterus consistent with a prior hysterectomy. Postoperative changes in the subcutaneous fat deep to the umbilicus. There is a 1.5 cm well-defined fluid collection in the subcutaneous fat in the right side of the midline in the supraumbilical region. There are diffuse degenerative changes of the visualized lumbar spine. Levoscoliosis. CT/Abdomen/Pelvis W IV Cont ONLY IMPRESSION: Diffuse ascites. Mild hepatomegaly and diffuse fatty infiltration of the liver. Stable left renal cysts. Small fluid collection in the subcutaneous tissue on the right side of the midline just above the umbilical region. Electronically Signed: Darryl Gaspar MD at 9:40 EST , Service support ,
--- NOTE | 2020-10-30 08:05 | CT_ITS ---
STUDY: CT CHEST WITH CONTRAST REASON FOR EXAM: Female, 65 years old. OVARIAN CANCER FOLLOW UP RADIATION DOSAGE (If Supplied By Facility): CTDIvol = ( 10.86 ) mGy, DLP = ( 1372.68 ) mGycm TECHNIQUE: Transaxial imaging was performed following intravenous administration of IV 100mL Isovue-300. Multiplanar coronal and sagittal images were reformatted. Individualized dose optimization techniques were used for this CT. COMPARISON: Comparison is made with prior study dated 09/02/2020. FINDINGS: A right-sided portacatheter is in situ with the tip in the superior vena cava. Minimal residual atelectatic change at the right lung base. There is no demonstrated pleural abnormality. There are calcifications of the coronary arteries. Normal mediastinum. Normal hilar regions. Normal enhanced pulmonary arteries. Normal aorta arch and descending thoracic aorta. There are multi-level degenerative changes of the thoracic spine. 50% loss of right of the lower dorsal vertebrae. Diffuse ascites. Mild hepatomegaly with fatty infiltration of the liver. CT/Chest WITH Contrast IMPRESSION: Minimal atelectatic changes at the right lung base. Hepatomegaly and fatty infiltration of liver. Electronically Signed: Darryl Gaspar MD at 9:42 EST , Service support ,
[2020-10-30] MEDS: 0.9% Saline Lock 10 ML Syringe IV (08:46)
== END ==
PROVIDERS: PCP Family Medicine; Referring Provider Internal Medicine Hematology & Oncology; Visit Provider Internal Medicine Hematology & Oncology
DX: C56.9 Malignant neoplasm of unspecified ovary (principal); C78.6 Secondary malignant neoplasm of retroperitoneum and peritoneum; C80.1 Malignant (primary) neoplasm, unspecified
CPT/HCPCS: 36430; 36591; 71260; 74177; 80048; 83735; 84100; 85025; 86644; 86850; 86900; 86901; 86920; 86922; J7040; P9040; Q9967; A4216

== ENCOUNTER → 2020-11-01 13:42 | Outpatient (CLI) | payer MEDICARE, BC, SELFPAY ==
[2020-10-30 09:48] VITALS: BMI 26.6
--- NOTE | 2020-11-01 | FLU_PTH ---
PATIENT: BRIAN RUDD LOC: [facility]#:[id number] AGE/SX: 69/F ROOM: RE11/01/[address]: MARIAJOSE Pleitez : 1955 BED: DIS: SPEC #: [id number] RECD: 11/04/20 10:42 STATUS: DAVID REEsperanza #: [id number] DRE: 11/01/20 00:[address]: Katie Madrigal NP DEPT: CYTOLOGY RECD BY: Tha Espana ENTERED: 11/04/20 10:43 SP TYPE: Fluid OTHR DR: Dr. Valeriy Santana MD Tissues: PARACENTESIS FLUID Procedures: Special Stain Group II Surgery Specimen Level IV Cytospin Fluid HEADER OPERATION: Ultrasound-guided right paracentesis PRE-OP DIAGNOSIS: Ascites TISSUE SUBMITTED: Ultrasound-guided right paracentesis fluid for cytology DIAGNOSIS CYTOLOGY Paracentesis fluid for cytology (cytospin and cell block): Positive for malignant cells consistent with non-small cell carcinoma, adenocarcinoma. See comment. AM:savanah 11/05/2020 COMMENT Immunohistochemistry ([id number]) supports the above diagnosis and is consistent with an ovarian primary. CYTOLOGY STUDY Slides are reviewed. CYTOLOGY GROSS Received is 90 ml of red cloudy fluid labeled with the patient's name and and designated per the requisition as paracentesis. Submitted for cytology preparation including cell block. / savanah 11/04/2020 TC:0 CPT: 90854, 62307
--- NOTE | 2020-11-01 | IMM_PTH ---
PATIENT: BRIAN RUDD LOC: [facility]#:[id number] AGE/SX: 69/F ROOM: RE11/01/[address]: MARIAJOSE Pleitez : 1955 BED: DIS: SPEC #: [id number] RECD: 11/05/20 14:27 STATUS: DAVID REQ #: [id number] DRE: 11/01/20 00:[address]: Katie Madrigal NP DEPT: IMMUNOHISTOCHEMISTRY RECD BY: Marina Fraser ENTERED: 11/05/20 14:28 SP TYPE: IMMUNO OTHR DR: Dr. Valeriy Santana MD Tissues: PARACENTESIS FLUID Procedures: RCC (add) CA-125 (add) CEA (add) CK19 (add) CK20 (add) CK7 (add) CK8 (add) SHANE-2 (add) HEP PAR (add) P53 (add) Pankeratin (initial) CDX2 (add) PHYSICIAN & [address] [address] SPECIMEN INFORMATION: Tissue Source: Paracentesis fluid Clinical Info: Ascites Specimen Number: [id number] CPT code: 67961, 68169 x11 METHODOLOGY: Deparaffinized sections of prefer/formalin-fixed tissue or PAP/DQ stained slides are incubated with monoclonal/polyclonal antibodies/oligonucleotide probes. Localization is made via biotin free immunoperoxidase method. Appropriate controls are performed and reacted as expected. Results on target cell population are indicated in the following table: RESULTS: ANTIBODY / CLONE RESULT AE1-3 (AE1/AE3/PCK26) positive CK7 (OV-TL12/30) positive CK8 (36onhlG45) positive CK20 (KS20.8) negative SHANE-2 (SP21) positive CDX2 (FDL9309H) negative CK19 (A53-B/A2.26) positive HepPar (OCh1E5) negative RCC (PN-15) negative CEA (11-7/TF-3HB-1) positive CA125 (OC125) positive P53 (DO-7) negative These tests were developed and their performance characteristics determined by [facility]. They may not have been cleared or approved by the U.S. Food and Drug Administration. The FDA has determined that such clearance or approval is not necessary. The above immunohistochemical/dualISH markers are ordered and reviewed by the Pathologist. INTERPRETATION: Paracentesis fluid: Metastatic non-small cell carcinoma. See comment. AM:savanah 11/07/2020 Comment: The IHC profile favors an ovarian primary.
--- NOTE | 2020-11-01 13:43 | US_ITS ---
PROCEDURE: Ultrasound guided paracentesis. DATE OF EXAMINATION: 11/01/2020. INDICATION: Female, 65 years old. Ascites. PHYSICIAN: Darryl Gaspar M.D. TECHNIQUE: The risks, benefits, and alternatives to the procedure were explained to the patient. The specific risks of bleeding, infection, and damage to bowel were detailed and accepted. Witnessed informed consent was obtained. The abdomen was ultrasonographically surveyed. An appropriate pocket of fluid was identified at the right lower quadrant. The skin were cleaned and prepped in the usual sterile fashion. Using ultrasound guidance, the peritoneal cavity was accessed with a 5-Liberian paracentesis needle/catheter system. The trocar was removed. A total of 700 ml of josiah-colored fluid were removed from the peritoneal cavity. A sample was sent to the laboratory. The catheter was removed and a sterile dressing was applied. The procedure was well tolerated. US/Paracentesis with US IMPRESSION: Ultrasound guided paracentesis. Electronically Signed: Darryl Gaspar MD at 15:24 EST , Service support ,
[2020-11-01 14:56] LABS: Cytology, Body Fluid / CSF SEE PATHOLOGY REPORT
[2020-11-01 15:24] VITALS: BP 139/59; BP 139/64; BP 144/62; PULSE 85; PULSE 87; PULSE 88; RESP 16; RESP 18; TEMP 36.7; O2SAT 96; O2SAT 98
== END ==
PROVIDERS: PCP Family Medicine; Referring Provider Nurse Practitioner Family; Visit Provider Nurse Practitioner Family
DX: R18.8 Other ascites (principal); C78.6 Secondary malignant neoplasm of retroperitoneum and peritoneum; C80.1 Malignant (primary) neoplasm, unspecified
CPT/HCPCS: 49083; 88108; 88305; 88313; 88341; 88342

== ENCOUNTER → 2021-03-06 07:25 | Outpatient (CLI) | payer MEDICARE, BC, SELFPAY ==
[2021-02-12 10:28] VITALS: BMI 25.0
[2021-03-05 09:53] VITALS: BMI 25.9
--- NOTE | 2021-03-06 07:28 | CT_ITS ---
STUDY: CT CHEST, ABDOMEN T PELVIS WITH CONTRAST REASON FOR EXAM: Female, 65 years old. OVARIAN CANCER RESTAGING ON RX RADIATION DOSAGE (If Supplied By Facility): CTDIvol = ( 12.11 ) mGy, DLP = ( 936.50 ) mGycm TECHNIQUE: Transaxial imaging was performed following intravenous administration of Oral and amp; IV Readi-CAT and amp; 100mL Isovue-300. Individualized dose optimization techniques were used for this CT. COMPARISON: Comparison is made with prior examination dated 10/30/2020. FINDINGS: CHEST A right-sided portacatheter is in situ with the tip in the superior vena cava. Stable appearance of the small bilateral axillary lymph nodes. The lungs are normal. There is no demonstrated pleural abnormality. There are calcifications of the coronary arteries. Normal mediastinum. Normal hilar regions. Normal unenhanced pulmonary arteries. Normal aorta arch and descending thoracic aorta. There are multi-level degenerative changes of the thoracic spine. Stable loss of height of a lower dorsal vertebrae. Minimal amount of the perihepatic fluid. ABDOMEN The visualized lung bases are unremarkable. Coronary artery calcification. Minimal amount of the perihepatic fluid along the anterior aspect. There is a 1.9 cm cyst in the medial aspect of the right lobe of the liver. This is unchanged. There are multiple gallstones. Normal spleen. Normal pancreas. Normal bilateral adrenal glands. Normal right kidney. Stable left renal cysts. The largest is in the upper pole measuring 7.3 cm x 3.9 cm. Normal visualized stomach. Normal small intestine. Normal colon. The appendix is visualized and appears normal. There is diffuse atherosclerotic calcification of the abdominal aorta, without a demonstrated aneurysm. Normal inferior vena cava. Normal retroperitoneum. Normal abdominal wall. Normal osseous structures. PELVIS There is evidence of a cystocele. The patient is status post hysterectomy. Small amount of free fluid is seen in the cul-de-sac. Normal visualized small intestine. Normal visualized colon. There is no pelvic fluid. There is no pelvic lymphadenopathy or mass lesion. There is diffuse atherosclerotic calcification of the pelvic arteries. Normal abdominal wall. There are diffuse degenerative changes of the visualized lumbar spine. CT/CT Chest, Abd, Pel w/Contrast IMPRESSION: Small amount of free fluid in the cul-de-sac as well as along the perihepatic region. Stable left renal cysts. Electronically Signed: Darryl Gaspar MD at 9:14 EDT , Service support ,
[2021-03-06] MEDS: 0.9% Saline Lock 10 ML Syringe IV (08:21)
== END ==
PROVIDERS: PCP Family Medicine; Referring Provider Internal Medicine Hematology & Oncology; Visit Provider Internal Medicine Hematology & Oncology
DX: C56.9 Malignant neoplasm of unspecified ovary (principal)
CPT/HCPCS: 71260; 74177; Q9967; A4216